=== PATIENT | male | born 1970 | race Caucasian/White ===

== ENCOUNTER 2020-11-01 09:09 | Emergency (ER) | payer OTHER, SELFPAY ==
[2020-11-01 09:19] VITALS: BP 113/74; PULSE 70; RESP 14; TEMP 36.2; O2SAT 99; BMI 23.0
--- NOTE | 2020-11-01 09:35 | ED.SKABFB ---
HPI - Skin/Abscess/Foreign Bdy General Chief complaint: Skin/Abscess/Foreign Body Stated complaint: Large wound on left leg Time Seen by Provider: 11/01/20 09:24 Source: patient and family Mode of arrival: Ambulatory Limitations: no limitations History of Present Illness HPI narrative: Patient is a 50-year-old male. Less than 12 hours ago he sustained a cut to his left leg. He states that he tripped over a board and cut his leg on the handle of a portable fireplace. He was wearing pants at the time. There was no cut in the pants. He states he is having minimal discomfort. He does not know when his last tetanus shot was. Has provided no treatment prior to arrival. Related Data Home Medications Medication Instructions Recorded Confirmed lisinopril 40 mg tablet 40 mg PO DAILY 11/01/20 11/01/20 metoprolol succinate 100 mg 100 mg PO DAILY 11/01/20 11/01/20 tablet,extended release 24 hr rosuvastatin 5 mg tablet 5 mg PO DAILY 11/01/20 11/01/20 Allergies Allergy/AdvReac Type Severity Reaction Status Date / Time No Known Drug Allergies Allergy Verified 11/01/20 09:23 Review of Systems Musculoskeletal Comments: No leg pain Integumentary/Breasts Comments: Cut to the left leg Neurologic Neurologic: Reports system reviewed and no additional complaints, except as documented Hematologic/Lymphatic On Anticoagulants: No Patient History Medical History Hypertension Social History Smoking Status: Current every day smoker Smoking Status: Current every day smoker tobacco type: cigarettes alcohol intake frequency: 3 or more drinks per day Substance Use Type: does not use Exam Initial Vital Signs Initial Vital Signs: Vital Signs Temperature 97.1 F L 11/01/20 09:19 Pulse Rate 70 11/01/20 09:19 Respiratory Rate 14 11/01/20 09:19 Blood Pressure 113/74 11/01/20 09:19 Pulse Oximetry 99 11/01/20 09:19 Const General: cooperative and comfortable HENKS Head: normal to inspection and normocephalic Skin Other: Patient has a 5 cm laceration on the anterior lateral aspect of his left mid tibia. No active bleeding. Neuro Other: No sensory deficits. Extrem Other: Laceration to the anterior lateral aspect of the tibia. Does only involved the skin. Does not involve the fascia or the muscle. Psych Appearance: grossly normal Procedures Laceration Repair Laceration 1: Site: lower extremity Size (cm): 5 Description: linear Depth: simple, single layer Local Anesthetic: lidocaine 1% and with bicarb Amount of anesthesia used (mL): 10 Pre-repair: wound explored, irrigated extensively and deep structures intact Skin layer closed with: nylon Size (cm): 3-0 Number of sutures: 9 Technique: simple, interrupted Course Orders Ordered: Discontinued Medications Bacitracin (Bacitracin Oint 0.9 Gm Pckt) 1 applic TOP NOW ONE Stop: 11/01/20 09:35 Diphtheria/Tetanus/Acell Pertussis (Tet,Diph,Pertuss(Acell),Vac/Pf 0.5 Ml Syringe) 0.5 ml IM .ONCE ONE Stop: 11/01/20 09:25 Last Admin: 11/01/20 09:45 Dose: 0.5 ml Documented by: Lidocaine/Sodium Bicarbonate (Lido 1%/Sod Bicarb 8.4% (10ml) 10 Ml Syringe) 10 ml INJ NOW ONE Stop: 11/01/20 09:35 Last Admin: 11/01/20 09:45 Dose: 10 ml Documented by: Vital Signs Vital signs: Vital Signs - 8 hr 11/01/20 09:19 Temperature 97.1 F L Pulse Rate 70 Respiratory Rate 14 Blood Pressure 113/74 Pulse Oximetry 99 MDM - Skin/Abscess/Foreign Bdy MDM Narrative Medical decision making narrative: Patient's tetanus was updated. The wound was closed as described above. There is no signs of infection. No deep structures involved. The wound was irrigated extensively. Patient was given return precautions and care instructions and follow-up instructions. He expressed understanding and agreement. Discharge Plan Departure Patient Disposition: Home Clinical Impression: Laceration Instructions: DI for Laceration Repair -- Simple Activity Restrictions/Additional Instructions: You can shower like normal. You can use soap and water like normal. You can use topical antibiotic ointment. The stitches do need to be removed in 10 days. Return to the emergency department for any new or worsening symptoms. Prescriptions: No Action metoprolol succinate 100 mg tablet extended release 24 hr 100 mg PO DAILY RF: 0 lisinopril 40 mg tablet 40 mg PO DAILY RF: 0 rosuvastatin 5 mg tablet 5 mg PO DAILY RF: 0
[2020-11-01] MEDS: LIDO 1%/SOD BICARB 8.4% (10ML) 10 ML SYRINGE INJ (09:45)
[2020-11-01] MEDS: TET,DIPH,PERTUSS(ACELL),VAC/PF 0.5 ML SYRINGE IM (09:45)
[2020-11-01 10:27] VITALS: BP 119/76; PULSE 60; RESP 16; O2SAT 100
[2020-11-01] MEDS: BACITRACIN OINT 0.9 GM PCKT 1 APPLIC TOP (10:38)
== END 2020-11-01 10:47 | disposition home or self-care (01) ==
PROVIDERS: Emergency Provider Emergency Medicine
DX: S81.812A Laceration without foreign body, left lower leg, initial encounter (principal); Z23 Encounter for immunization; W19.XXXA Unspecified fall, initial encounter
CPT/HCPCS: 12002; 90471; 99283; 90715

== ENCOUNTER → 2021-12-19 15:39 | Outpatient (CLI) | payer OTHER, SELFPAY ==
--- NOTE | 2021-12-19 15:41 | DI.US.S_ITS ---
PROCEDURE: US ABDOMEN LIMITED INDICATIONS: ELEVATED LIVER ENZYMES TECHNIQUE: Real-time scanning was performed of the abdominal and retroperitoneal organs, with image documentation. COMPARISON: None. FINDINGS: Liver: Liver is prominent in size measuring 18.6 cm. The liver demonstrates diffusely increased echotexture without focal abnormalities consistent with chronic hepatocellular disease/hepatic steatosis. Main portal vein measures 13.9 mm in diameter with hepatopetal flow. Gallbladder: Gallbladder is normal in sonographic appearance without gallstones, gallbladder wall thickening, pericholecystic fluid, or abnormal sonographic Hughes's. Biliary ducts: Intrahepatic bile ducts are non-dilated. Extrahepatic bile duct caliber measures 6 mm. Normal is 6-7 mm or less in diameter, or 10 mm or less post-cholecystectomy. Pancreas: Visualized portions of the pancreas appear unremarkable. Kidneys: Incidental note of a 2.5 x 4.1 x 3.8 cm simple cyst in the inferior pole the right kidney. Miscellaneous: No free abdominal fluid. IMPRESSION: The liver demonstrates diffusely increased echotexture without focal abnormalities consistent with chronic hepatocellular disease/hepatic steatosis. Findings may explain patient's history of abnormal liver function tests. Dictated by: Kendall Garnica M.D. on 12/20/2021 at 8:46 Approved by: Kendall Garnica M.D. on 12/20/2021 at 8:48
== END ==
PROVIDERS: Referring Provider Acupuncturist; Visit Provider Acupuncturist
DX: R74.01 Elevation of levels of liver transaminase levels (principal)
CPT/HCPCS: 36415; 76705; 80076; 82728; 83540; 83550; 85025

== ENCOUNTER → 2021-12-19 16:40 | Outpatient (CLI) | payer OTHER, SELFPAY ==
[2021-12-19 18:12] LABS: Add Manual Diff / Slide Review NO; Basophils Absolute Auto 0 /uL (0-100); Basophils Percent Auto 0.5 % (0-2); Eosinophils Absolute Auto 100 /uL (0-450); Eosinophils Percent Auto 1.2 % (2-4); Hematocrit 36.3 % (41-53); Hemoglobin 12.5 g/dL (13.5-17.5); Lymphocytes Absolute Auto 1200 /uL (1100-4500); Lymphocytes Percent Auto 20.5 % (25-40); Mean Corpuscular HGB Conc 34.5 % (30-36); Mean Corpuscular Hemoglobin 33.8 PG (26-34); Mean Corpuscular Volume 98.1 fL (80-100); Monocytes Absolute Auto 400 /uL (0-900); Monocytes Percent Auto 7.3 % (3-14); Neutrophils Absolute Auto 4000 /uL (1500-7000); Neutrophils Percent Auto 70.5 % (50-75); Platelet Count 253 X10^3/uL (150-400); Red Cell Distribution Width 13.5 % (11.6-14.8); White Blood Cell Count 5.6 X10^3/uL (4.5-11.0)
[2021-12-19 18:25] LABS: Iron 119 ug/dL (49-181)
[2021-12-19 18:27] LABS: Alanine Aminotransferase 48 IU/L (<50); Albumin 4.5 g/dL (3.5-5.0); Albumin Globulin Ratio 1.3 (1.0-2.8); Alkaline Phosphatase 69 U/L (38-126); Aspartate Aminotransferase 64 IU/L (17-59); Bilirubin Total 0.4 mg/dL (0.2-1.3); Bilirubin Unconjugated 0.3 mg/dL (0.0-1.1); Globulin 3.4 g/dL (1.7-4.1); HEMOLYSIS < 15 (0-50); Total Protein 7.9 g/dL (6.3-8.2)
[2021-12-19 18:34] LABS: Total Iron Binding Capacity 261 ug/dL (261-462)
[2021-12-19 19:00] LABS: Ferritin 773 ng/mL (18-464)
== END ==
PROVIDERS: PCP Acupuncturist; Referring Provider Acupuncturist; Visit Provider Acupuncturist
DX: R74.01 Elevation of levels of liver transaminase levels (principal)
CPT/HCPCS: 36415; 80076; 82728; 83540; 83550; 85025

== ENCOUNTER → 2022-08-28 11:53 | Outpatient (CLI) | payer OTHER, SELFPAY ==
[2022-08-28 12:59] LABS: HEMOLYSIS < 15 (0-50); Iron 81 ug/dL (49-181)
[2022-08-28 13:11] LABS: Percent Iron Saturation 30 % (20-50); Total Iron Binding Capacity 272 ug/dL (261-462); Transferrin 203 mg/dL (206-381)
[2022-08-28 13:16] LABS: Alanine Aminotransferase 34 IU/L (<50); Albumin 4.4 g/dL (3.5-5.0); Albumin Globulin Ratio 1.5 (1.0-2.8); Alkaline Phosphatase 98 U/L (38-126); Aspartate Aminotransferase 46 IU/L (17-59); Bilirubin Total 0.2 mg/dL (0.2-1.3); Cholesterol 197 mg/dL (140-199); Globulin 2.9 g/dL (1.7-4.1); HDL Cholesterol 49 mg/dL (40-60); HEMOLYSIS < 15 (0-50); LDL Cholesterol Calculated 79 mg/dL (<100); Total Protein 7.3 g/dL (6.3-8.2); Triglycerides 345 mg/dL (35-150)
[2022-08-28 13:51] LABS: Ferritin 376 ng/mL (18-464)
[2022-08-29 03:45] LABS: Alpha 1 Anti Trypsin 112 mg/dL (101-187)
[2022-08-29 21:37] LABS: Tissue Transglutaminase IgA <2 U/mL (0-3); Tissue Transglutaminase IgG 3 U/mL (0-5)
[2022-08-30 13:15] LABS: Smooth Muscle Antibody 7 Units (0-19)
[2022-09-13 09:08] LABS: Herd. hemochromatosis SEE COMMENTS
== END ==
PROVIDERS: PCP Acupuncturist; Referring Provider Internal Medicine Gastroenterology; Visit Provider Internal Medicine Gastroenterology
DX: R79.89 Other specified abnormal findings of blood chemistry (principal); E78.00 Pure hypercholesterolemia, unspecified; R74.01 Elevation of levels of liver transaminase levels
CPT/HCPCS: 36415; 80061; 80076; 81256; 82103; 82728; 83516; 83540; 83550; 84425; 86038

== ENCOUNTER → 2023-06-24 13:45 | Outpatient (CLI) | payer OTHER, SELFPAY ==
[2023-06-24 14:58] LABS: Hemoglobin A1C% w Est Avg Glu 4.9 % (4.0-6.0)
[2023-06-24 15:09] LABS: HEMOLYSIS < 15 (0-50)
[2023-06-24 15:23] LABS: Alanine Aminotransferase 45 IU/L (<50); Albumin 4.9 g/dL (3.5-5.0); Albumin Globulin Ratio 1.4 (1.0-2.8); Alkaline Phosphatase 105 U/L (38-126); Aspartate Aminotransferase 99 IU/L (17-59); BUN Creatinine Ratio 17.3 (6-22); Bilirubin Total 0.8 mg/dL (0.2-1.3); Blood Urea Nitrogen 14 mg/dL (9-20); Calcium 9.8 mg/dL (8.4-10.2); Carbon Dioxide 23 mmol/L (22-32); Chloride 102 mmol/L (98-107); Cholesterol 230 mg/dL (140-199); Estimated Glomerular Filt Rate > 60 mL/min (>60); Globulin 3.6 g/dL (1.7-4.1); Glucose 102 mg/dL (70-100); HDL Cholesterol 65 mg/dL (40-60); LDL Cholesterol Calculated 97 mg/dL (<100); Potassium 4.3 mmol/L (3.4-5.1); Sodium 136 mmol/L (137-145); Total Protein 8.5 g/dL (6.3-8.2); Triglycerides 339 mg/dL (35-150)
[2023-06-24 23:31] LABS: Ferritin 948 ng/mL (18-464)
== END ==
PROVIDERS: PCP Acupuncturist; Referring Provider Acupuncturist; Visit Provider Acupuncturist
DX: Z00.00 Encounter for general adult medical examination without abnormal findings (principal)
CPT/HCPCS: 36415; 80053; 80061; 82728; 83036